=== PATIENT | male | born 1975 | race Caucasian/White ===

== ENCOUNTER 2020-11-18 03:14 | Outpatient (CLI) | payer OTHER, SELFPAY ==
[2020-11-19 12:26] LABS: COVID-19 RT-PCR UVMMC Result Negative (Negative)
== END 2020-11-18 03:15 | disposition home or self-care (01) ==
LOC: LBO 03:15
PROVIDERS: PCP Nurse Practitioner; Visit Provider Nurse Practitioner
DX: Z20.822 Contact with and (suspected) exposure to COVID-19 (principal)
CPT/HCPCS: U0003